=== PATIENT | male | born 1975 | race Caucasian/White ===

== ENCOUNTER 2016-11-12 20:55 | Emergency (ER) | payer SELFPAY ==
[~2016-11-12] VITALS: Ht 180.3 cm; Wt 73.0 kg
[~2016-11-12 20:55] MED LIST: ALBU8I INH; PRED20 PO; Z.0.NO CURRENT MEDS
[2016-11-12 21:05] VITALS: BP 128/91; PULSE 99; RESP 18; TEMP 98.4; O2SAT 97
[2016-11-12] MEDS ORDERED: SODIUM CHLOR 0.9% 1000 ML INJ 1,000 ML IV SCH (21:08)
--- NOTE | 2016-11-12 21:09 | PD ---
HPI Chief Complaint: OVERDOSE Time Seen by Provider: 21:09 Travel History International Travel<30 days: No Contact w/Intl Traveler<30days: No History of Present Illness HPI 41-year-old male is brought to the emergency department by EMS for evaluation of overdose. Per EMS report they were called by the patient's friends as the patient became unresponsive after taking a pill. EMS gave the patient 0.4 Narcan and he responded immediately and has been awake, alert and oriented since then. Received this dose about 30 minutes prior to arrival at the ED. The patient is stating that he took what he believes to be a "compound of Roxicodone." States that he has also had about 6 beers today. He denies any other drug use. Denies IV drug use. Denies any complaints. Denies any fever, chills, nausea, vomiting, chest pain, shortness of breath, abdominal pain. No other complaints. [facility] Social History Alcohol Use: Yes Tobacco Use: No Substance Use: Yes Allergies-Medications (Allergen,Severity, Reaction): Coded Allergies: No Known Allergies (Unverified , 11/12/16) Reported Meds & Prescriptions Reported Meds & Active Scripts Active No Active Prescriptions or Reported Medications Review of Systems Except as stated in HPI: all other systems reviewed are Neg Physical Exam Narrative GENERAL: Well-nourished and well-developed pleasant male patient in no acute distress who is nontoxic appearing. SKIN: Warm and dry. HEAD: Normocephalic and atraumatic. EYES: No injection, drainage, or hyphema noted. PERRLA. EOMI. ENT: No nasal drainage noted. Oropharynx is clear. NECK: Supple and the trachea is midline. CARDIOVASCULAR: Regular rate and rhythm. RESPIRATORY: Breath sounds are equal bilaterally with no accessory muscle use, wheezing, rhonchi, or crackles. GASTROINTESTINAL: Abdomen is soft, non-tender, and nondistended. MUSCULOSKELETAL: No obvious deformities, swelling, cyanosis, or ecchymosis is present throughout the upper and lower extremities. Patient has full range of motion without any signs of neurovascular compromise. NEUROLOGICAL: Awake, alert, and oriented. Normal speech and gait. Cranial nerves are grossly intact. Data Data Last Documented VS Vital Signs Date Time Temp Pulse Resp B/P Pulse Ox O2 Delivery O2 Flow Rate FiO2 11/12/16 21:12 92 18 98 Nasal Cannula 2 11/12/16 21:05 98.4 128/91 Orders Complete Blood Count With Diff (11/12/16 21:08) Comprehensive Metabolic Panel (11/12/16 21:08) Iv Access Insert/Monitor (11/12/16 21:08) Ecg Monitoring (11/12/16 21:08) Oximetry (11/12/16 21:08) Sodium Chlor 0.9% 1000 Ml Inj (Ns 1000 M (11/12/16 21:08) Sodium Chloride 0.9% Flush (Ns Flush) (11/12/16 21:15) Electrocardiogram (11/12/16 21:08) MDM Medical Decision Making Medical Screen Exam Complete: Yes Emergency Medical Condition: Yes Differential Diagnosis Substance abuse versus opiate overdose versus alcohol abuse Narrative Course 41-year-old male is brought to the emergency department by EMS for evaluation of possible overdose. Patient is afebrile, vital signs are stable. Patient was given Narcan by EMS with complete resolution of symptoms. He is now awake, alert and oriented. He is denying any medical complaints. IV access is obtained. Patient will be administered fluids and observed here in the emergency department. EKG shows normal sinus rhythm with no acute elevations or depressions. Patient has been observed here in the emergency department for 2 hours. His heart rate has come down to 71 bpm and vitals have remained stable. He states that he feels well and is ready to be discharged home. The patient has a ride home and therefore he is stable for discharge. I discussed the case with my attending physician Dr. Sierra who is aware of the patients history, physical examination findings, and treatment plan. Diagnosis Primary Impression: Opiate or related narcotic overdose Qualified Code: T40.601A - Opiate or related narcotic overdose, accidental or unintentional, initial encounter Additional Impression: Substance abuse Referrals: Primary Care Physician Patient Instructions: General Instructions Additional Instructions: Don't use illegal drugs. Follow-up with your Primary Care Physician. Return to the ED for any acute worsening of symptoms. Med/Other Pt SpecificInfo: Prescription(s) given Scripts No Active Prescriptions or Reported Meds Disposition: 01 DISCHARGE HOME Condition: Stable Gisele Morgan Nov 12, 2016 21:09
[2016-11-12] MEDS ORDERED: SODIUM CHLORIDE 0.9% FLUSH 10 ML FLUSH IV FLUSH PRN (21:15)
[2016-11-12 23:16] VITALS: BP 134/91
--- NOTE | 2016-11-13 13:09 | EKG ---
Date Performed: 11/12/2016 Time Performed: 21:10:15 PTAGE: 41 years EKG: Sinus rhythm LEFT ANTERIOR FASCICULAR BLOCK ABNORMAL ECG NO PREVIOUS TRACING DOCTOR: Alex Cortes Interpretating Date/Time 11/13/2016 13:08:02
== END 2016-11-12 23:25 | disposition home or self-care (01) ==
LOC: NEPC 20:55
DX: T40.601A Poisoning by unspecified narcotics, accidental (unintentional), initial encounter (principal); F19.10 Other psychoactive substance abuse, uncomplicated; R94.31 Abnormal electrocardiogram [ECG] [EKG]
CPT/HCPCS: 80053; 93005

== ENCOUNTER 2017-04-18 11:56 | Emergency (ER) | payer SELFPAY ==
[~2017-04-18] VITALS: Ht 180.3 cm; Wt 61.5 kg
[2017-04-18 11:59] VITALS: BP 166/74; PULSE 82; RESP 16; TEMP 97.7; O2SAT 99
[2017-04-18] MEDS ORDERED: SODIUM CHLOR 0.9% 1000 ML INJ 1,000 ML IV ONE ×2 (12:30→14:30)
--- NOTE | 2017-04-18 12:33 | PD ---
HPI Chief Complaint: Complaint Time Seen by Provider: 12:09 Travel History International Travel<30 days: No Contact w/Intl Traveler<30days: No Traveled to known affect area: No History of Present Illness HPI This patient's chief complaint is back pain. He has bilateral low back pain. None in the midline. No injury. Duration 2 weeks. Denies fever. He does have history of IV drug abuse, injecting heroin, last use 1 week ago. Symptoms severity is moderate. No alleviating factors. PFSH Past Medical History Medical History: Denies Significant Hx Diminished Hearing: No Tetanus Vaccination: Unknown Past Surgical History Surgical History: No Previous Surgery Social History Alcohol Use: No (occassionally) Tobacco Use: No Substance Use: Yes Allergies-Medications (Allergen,Severity, Reaction): Coded Allergies: No Known Allergies (Unverified , 04/18/17) Reported Meds & Prescriptions Reported Meds & Active Scripts Active No Active Prescriptions or Reported Medications Review of Systems General / Constitutional: No: Fever Eyes: No: Visual changes HENT: No: Headaches Cardiovascular: No: Chest Pain or Discomfort Respiratory: No: Shortness of Breath Gastrointestinal: No: Abdominal Pain Genitourinary: Positive: Decreased Urinary Output, No: Dysuria Musculoskeletal: Positive: Pain Skin: No Rash Neurologic: No: Weakness Psychiatric: Positive: Substance Abuse, No: Depression Endocrine: No: Polydipsia Hematologic/Lymphatic: No: Easy Bruising Physical Exam Narrative GENERAL: Well-nourished, well-developed patient with back pain . SKIN: Focused skin assessment reveals no rash and nodules. Skin is Warm and dry. Track du are Visible HEAD: Atraumatic. Normocephalic. EYES: Pupils equal and round. No scleral icterus. No injection or drainage. ENT: No nasal bleeding or discharge. Mucous membranes pink and moist. NECK: Trachea midline. No JVD. CARDIOVASCULAR: Regular rate and rhythm. No murmur appreciated. RESPIRATORY: No accessory muscle use. Clear to auscultation. Breath sounds equal bilaterally. GASTROINTESTINAL: Abdomen soft, non-tender, nondistended. Hepatic and splenic margins not palpable. MUSCULOSKELETAL: No obvious deformities. No clubbing. No cyanosis. No edema. NEUROLOGICAL: Awake and alert. No obvious cranial nerve deficits. Motor grossly within normal limits. Normal speech. PSYCHIATRIC: Appropriate mood and affect; insight and judgment poor . Data Data Last Documented VS Vital Signs Date Time Temp Pulse Resp B/P (MAP) Pulse Ox O2 Delivery O2 Flow Rate FiO2 04/18/17 12:57 75 16 128/86 (100) 98 Room Air 04/18/17 11:59 97.7 Orders Orders Iv Access Insert/Monitor (04/18/17 12:22) Complete Blood Count With Diff (04/18/17 12:22) Comprehensive Metabolic Panel (04/18/17 12:22) Urinalysis - C+S If Indicated (04/18/17 12:22) Sodium Chlor 0.9% 1000 Ml Inj (Ns 1000 M (04/18/17 12:30) Ct Abd/Pel W/O Iv Contrast (04/18/17 ) Blood Culture (04/18/17 13:31) Sodium Chlor 0.9% 1000 Ml Inj (Ns 1000 M (04/18/17 14:30) Labs Laboratory Tests Test 04/18/17 12:55 04/18/17 13:30 Urine Collection Type CLEAN CATCH Urine Color YELLOW Urine Turbidity SLIGHT Urine pH 6.0 Urine Specific [place] 1.015 Urine Protein TRACE mg/dL Urine Glucose (UA) NEG mg/dL Urine Ketones NEG mg/dL Urine Occult Blood NEG Urine Nitrite NEG Urine Bilirubin NEG Urine Leukocyte Esterase NEG Urine WBC 0-2 /hpf Urine Squamous Epithelial Cells 0-5 /hpf Urine Transitional Epithelial Cells 0-5 /hpf Urine Amorphous Sediment MOD Urine Sperm MANY Microscopic Urinalysis Comment CULT NOT INDICATED Urine Collection Time 1255 White Blood Count 10.0 TH/MM3 Red Blood Count 4.36 MIL/MM3 Hemoglobin 12.9 GM/DL Hematocrit 38.7 % Mean Corpuscular Volume 88.6 FL Mean Corpuscular Hemoglobin 29.5 PG Mean Corpuscular Hemoglobin Concent 33.3 % Red Cell Distribution Width 12.0 % Platelet Count 476 TH/MM3 Mean Platelet Volume 8.5 FL CBC Comment AUTO DIFF Differential Total Cells Counted 100 Neutrophils % (Manual) 81 % Band Neutrophils % 11 % Lymphocytes % 8 % Neutrophils # (Manual) 9.2 TH/MM3 Differential Comment FINAL DIFF MANUAL Platelet Estimate HIGH Platelet Morphology Comment NORMAL Red Cell Morphology Comment NORMAL Blood Urea Nitrogen 19 MG/DL Creatinine 0.74 MG/DL Random Glucose 97 MG/DL Total Protein 8.7 GM/DL Albumin 2.6 GM/DL Calcium Level 8.4 MG/DL Alkaline Phosphatase 139 U/L Aspartate Amino Transf (AST/SGOT) 101 U/L Alanine Aminotransferase (ALT/SGPT) 114 U/L Total Bilirubin 0.4 MG/DL Sodium Level 128 MEQ/L Potassium Level 3.9 MEQ/L Chloride Level 96 MEQ/L Carbon Dioxide Level 24.2 MEQ/L Anion Gap 8 MEQ/L Estimat Glomerular Filtration Rate 117 ML/MIN MDM Medical Decision Making Medical Screen Exam Complete: Yes Emergency Medical Condition: Yes Medical Record Reviewed: Yes Differential Diagnosis Musculoskeletal back pain, kidney stone, sciatica, pyelonephritis Narrative Course I have reviewed the patient's electronic medical record. Patients back pain is bilateral low back and lumbar regions of the musculature area but no midline tenderness. I do not think he has discitis or epidural abscess. He is afebrile without tachycardia or hypotension or leukocytosis IV access was very challenging I accessed the right femoral vein with a blood draw Nurse placed a right and IV I gave him 1 L normal saline IV CBC is normal Metabolic profile reveals hyponatremia with normal renal function LFTs are minimally elevated in the [address] scan does not show anything emergent. Incidental note of mild hepatomegaly. He could likely of hep C given his IV drug abuse No clinical suspicion of sepsis or endocarditis. He has no chest symptoms at all. I did send a blood culture for thoroughness Etiology of his back pain is unclear. Upon recheck his back pain is feeling much better. He is neurologically intact without sciatica. Stable for outpatient follow-up. Diagnosis Primary Impression: Back pain at L4-L5 level Additional Impressions: IV drug abuse Hyponatremia Additional Instructions: The patient was advised to follow up with their physician and return if they worsen. Consider [facility] outpatient drug rehabilitation services Med/Other Pt SpecificInfo: Other Scripts No Active Prescriptions or Reported Meds Disposition: DISCHARGE HOME Condition: Stable John Pemberton MD Apr 18, 2017 12:33
[2017-04-18 12:57] VITALS: BP 128/86; PULSE 75; RESP 16; O2SAT 98
[2017-04-18 13:31] LABS: BLOOD, URINE NEG (NEG); GLUCOSE,URINE NEG (NEG); KETONE, URINE NEG (NEG); NITRITE,URINE NEG (NEG)
[2017-04-18 13:34] LABS: METHOD OF COLLECTION CLEAN CATCH; URINE COLOR YELLOW (YELLW/STRAW)
[2017-04-18 13:40] LABS: HEMATOCRIT 38.7 % (39.0-51.0); MEAN CELL VOLUME 88.6 FL (80.0-100.0); MEAN CORPUSCULAR HEMOGLOBIN 29.5 PG (27.0-34.0); MEAN CORPUSCULAR HGB CONC 33.3 % (32.0-36.0); PLATELET COUNT 476 TH/MM3 (150-450); RED BLOOD COUNT 4.36 MIL/MM3 (4.50-5.90)
[2017-04-18 13:41] LABS: COMMENT (UR) CULT NOT INDICATED; CULTURE IF INDICATED CULT NOT INDICATED; SQUAMOUS EPITHELIAL CELL URINE 0-5 /hpf (0-5); WBC, URINE 0-2 /hpf (0-5)
[2017-04-18 13:42] LABS: TRANSITIONAL EPI CELLS, URINE 0-5 /hpf
[2017-04-18 13:47] LABS: HEMO FLAGS AUTO DIFF
[2017-04-18 13:48] LABS: CHLORIDE 96 MEQ/L (98-107); POTASSIUM 3.9 MEQ/L (3.5-5.1); SODIUM (NA) 128 MEQ/L (136-145)
[2017-04-18 13:52] LABS: ANION GAP 8 MEQ/L (5-15); BICARBONATE 24.2 MEQ/L (21.0-32.0); BLOOD UREA NITROGEN 19 MG/DL (7-18)
[2017-04-18 13:55] LABS: ALT (GPT) 114 U/L (12-78); AST (GOT) 101 U/L (15-37); GLOMERULAR FILTRATION RATE 117 ML/MIN (>89)
[2017-04-18 13:56] LABS: TOTAL BILIRUBIN ADULT 0.4 MG/DL (0.2-1.0)
[2017-04-18 13:58] LABS: ALKALINE PHOSPHATASE 139 U/L (45-117)
--- NOTE | 2017-04-18 13:59 | RADRPT ---
EXAM DATE/TIME: 04/18/2017 13:39 [place] COMPARISON: No previous studies available for comparison. INDICATIONS : Infrequent urination, bilateral flank pain. ORAL CONTRAST: No oral contrast ingested. RADIATION DOSE: 6.32 CTDIvol (mGy) MEDICAL HISTORY : None SURGICAL HISTORY : None. ENCOUNTER: Initial ACUITY: 1 week PAIN SCALE: 10/10 LOCATION: Bilateral flank TECHNIQUE: Volumetric scanning of the abdomen and pelvis was performed. Using automated exposure control and ad justment of the mA and/or kV according to patient size, radiation dose was kept as low as reasonably achievable to obtain optimal diagnostic quality images. DICOM format image data is available electro nically for review and comparison. FINDINGS; The left lung base is clear. The portion of the liver and spleen visualized are unremarkable. There is moderate hepatomegaly. Right kidney: There is no evidence of stone or hydronephrosis. Left kidney: There is no stone is Pelvic contents showing scattered calcifications. There could be tiny stone in the right distal uret er measuring approximately 1 mm. There is no ascites. CONCLUSION: Limited exam because of lack of body fat There are no stones in the kidney Can't exclude tiny stone left UVJ. There is no perinephric stranding or hydronephrosis. Kole Danielson MD FACR on April 18, 2017 at 13:54 Board Certified Radiologist. This report was verified electronically.
[2017-04-18 14:17] LABS: BANDS 11 % (0-6); NEUTROPHIL # MANUAL DIFF 9.2 TH/MM3 (1.8-7.7); POLYS (SEG NEUTROPHILS) 81 % (16-70); WBC DIFF SAMPLE 100
[2017-04-18 14:18] LABS: PLATELET ESTIMATE SMEAR HIGH (NORMAL); PLATELET MORPHOLOGY NORMAL (NORMAL); SCAN/DIFF FINAL DIFF MANUAL
[2017-04-18 15:27] VITALS: BP 126/83; PULSE 77; RESP 18; O2SAT 97
== END 2017-04-18 15:30 | disposition home or self-care (01) ==
LOC: PHED 11:56
DX: M54.5 Low back pain (principal); F19.10 Other psychoactive substance abuse, uncomplicated; E87.1 Hypo-osmolality and hyponatremia
CPT/HCPCS: 74176; 80053; 81001; 85007; 85027; 87040; 96360; 99285; J7030